=== PATIENT | female | born 1960 | race Caucasian/White ===

== ENCOUNTER 2020-12-20 19:20 | Emergency (ER) | payer OTHER ==
[~2020-12-20] VITALS: Ht 157.5 cm; Wt 90.7 kg
[~2020-12-20 19:20] MED LIST: NO MEDS
[2020-12-20] MEDS ORDERED: SODIUM CHLORIDE 0.9% 100 ML ONE (19:53)
[2020-12-20] MEDS ORDERED: CASIRIVIMAB/IMDEVIMAB 10 ML in SODIUM CHLORIDE 0.9% 100 ML IV ONE (20:00)
== END 2020-12-20 22:25 | disposition home or self-care (01) ==
LOC: ER 21:11
DX: R05 Cough (principal); U07.1 COVID-19
CPT/HCPCS: 99283; J7050

== ENCOUNTER → 2022-10-13 | Outpatient (CLI) | payer OTHER | LOC: RAD 11:59 | PROVIDERS: ATTEND Family Medicine | DX: Z01.818 Encounter for other preprocedural examination (principal); M17.11 Unilateral primary osteoarthritis, right knee; I10 Essential (primary) hypertension | CPT/HCPCS: 71046; 93005 ==